=== PATIENT | male | born 1980 | race Caucasian/White ===

== ENCOUNTER 2021-11-22 04:17 | Day surgery (SDC) | payer BC ==
[2021-11-18 16:56] VITALS: BMI 29.9
[2021-11-22] MEDS ORDERED: LIDOCAINE HCL 1%, 10 MG/ML (20ML VIAL) ONE (11:12)
[2021-11-22] MEDS ORDERED: BUPIVACAINE HCL/PF 0.5% (5MG/ML) 10 ML VIAL ONE (11:13)
[2021-11-22] MEDS ORDERED: KETOROLAC TROMETHAMINE 30 MG/1 ML VIAL ONE (11:18)
[2021-11-22] MEDS ORDERED: PROPOFOL 20 ML ONE (11:18)
[2021-11-22] MEDS ORDERED: LIDOCAINE HCL 2% 100 MG/5 ML DISP.SYRIN ONE (11:18)
[2021-11-22] MEDS ORDERED: ONDANSETRON 4 MG/2 ML VIAL ONE ×2 (11:18→11:58)
[2021-11-22] MEDS ORDERED: MIDAZOLAM HCL 2 MG/2 ML SINGLE DOSE VIAL ONE (11:18)
[2021-11-22] MEDS ORDERED: DEXAMETHASONE SOD PHOSPHATE 4 MG/1 ML VIAL ONE (11:18)
[2021-11-22] MEDS ORDERED: ceFAZolin SODIUM 1 GM VIAL ONE (11:40)
[2021-11-22] MEDS ORDERED: LIDOCAINE HCL 1%, 10 MG/ML (20ML VIAL) NR ONE (11:42)
[2021-11-22] MEDS ORDERED: BUPIVACAINE HCL/PF 0.5% (5MG/ML) 10 ML VIAL IJ ONE (11:42)
[2021-11-22] MEDS ORDERED: ceFAZolin SODIUM 1 GM VIAL IVPB ONE (11:44)
[2021-11-22] MEDS ORDERED: PROMETHAZINE HCL 25 MG/1 ML VIAL IVPUSH PRN (12:22)
[2021-11-22] MEDS ORDERED: ONDANSETRON 4 MG/2 ML VIAL IVPUSH PRN (12:22)
[2021-11-22] MEDS ORDERED: oxyCODONE HCL 5 MG TABLET PO PRN ×2 (12:22)
[2021-11-22] MEDS ORDERED: LACTATED RINGERS SOLUTION 1,000 ML IV SCH (12:30)
[2021-11-22 14:32] VITALS: RESP 18; TEMP 97.8
[2021-11-22 15:45] VITALS: BP 109/70; PULSE 74
== END 2021-11-22 15:25 | disposition home or self-care (01) ==
LOC: JASU-SURG 04:17
PROVIDERS: ATTEND Surgery
PROC: 0JB50ZZ Excision of Left Neck Subcutaneous Tissue and Fascia, Open Approach (ICD-10-PCS; principal; 2021-11-22 11:49)
DX: D17.0 Benign lipomatous neoplasm of skin and subcutaneous tissue of head, face and neck (principal)
CPT/HCPCS: 88304-TC; 94760